=== PATIENT | female | born 1995 | race Caucasian/White ===

== ENCOUNTER 2019-08-30 17:17 | Emergency (ER) | payer OTHER, SELFPAY ==
[2019-08-30 17:26] VITALS: BP 132/79; PULSE 91; RESP 16; TEMP 36.4; O2SAT 100
--- NOTE | 2019-08-30 17:34 | ED.URI ---
HPI - URI/Sore Throat General Chief Complaint: Upper Respiratory Infection Stated Complaint: chest pain/sob Time Seen by Provider: 08/30/19 17:34 Source: patient and RN notes reviewed History of Present Illness HPI Narrative: Patient is a 24-year-old female who presents the urgent care with complaints of increase in asthma exacerbations. Patient states that she works in a long-term care facility in [place] and is noticed that she has had increased shortness of breath and asthma flares due to wearing her mask for long periods of time. Patient states that she is tested weekly for COVID and she is always had a negative result. Patient states they have had no COVID in their facility. Patient denies any fever, chills, nausea, vomiting. States that she did have a coughing fit prior to arrival but has not had distant coughing. Patient currently denies chest pain. States that she does use her albuterol inhaler which seems to help in some cases. No other acute complaints. No acute distress noted. Patient read the plan of care. Related Data Home Medications Medication Instructions Recorded Confirmed albuterol sulfate [ProAir HFA] 2 puff INHALATION QID PRN 08/30/19 08/30/19 escitalopram oxalate [Lexapro] 20 mg PO DAILY 08/30/19 08/30/19 etonogestrel [Nexplanon] 1 implant SUBDERMAL ONCE 08/30/19 08/30/19 Allergies Allergy/AdvReac Type Severity Reaction Status Date / Time No Known Allergies Allergy Verified 08/30/19 17:26 Review of Systems Review of Systems: Narrative: CONSTITUTIONAL: Denies fever, chills, or sweats. EYES: Denies visual changes, redness, or discharge. ENT: Reports of mild sore throat intermittently and postnasal drainage CARDIOVASCULAR: Denies chest pain, palpitations, or edema. RESPIRATORY: Reports a mild nonproductive cough with intermittent dyspnea and chest congestion GASTROINTESTINAL: Denies abdominal pain, nausea, vomiting, or diarrhea. GENITOURINARY: Denies dysuria or hematuria. SKIN: Denies rash or itching. MUSCULOSKELETAL: Denies back pain, joint pain, or myalgia. NEUROLOGIC: Denies headache, numbness, or weakness. All other systems reviewed are negative, except as documented in HPI. PMFSH Comments At the time of my signature, I reviewed and agree with the nursing past medical, surgical, social, and family history. There is no relevant family history pertinent to the patient complaint. Exam Narrative: Exam Narrative: GENERAL: This is a well-nourished, well-developed patient, in no apparent distress. HEAD: normocephalic, atraumatic. EYES: PERRL. Sclera clear/white. Vision is grossly intact. EARS: External ears normal, auditory canals clear and without drainage, TMs normal without perforation. Hearing grossly intact. NOSE: External nose normal with no obvious nasal discharge, nares without redness, no rhinorrhea. THROAT: Mucous membranes moist, mild erythema noted posterior oropharynx with mild postnasal drainage NECK: Neck supple CARDIOVASCULAR: Regular rate and rhythm without murmurs, gallops, or rubs. RESPIRATORY: Clear to auscultation. Breath sounds equal bilaterally. No wheezes, rales, or rhonchi. SKIN: warm, intact with no suspicious lesions or rash, good texture and turgor. NEURO: awake, alert, and oriented to person, place and time. There were no obvious focal neurologic abnormalities. EXTREMITIES: No clubbing, cyanosis, or edema. Course Vital Signs Vital signs: Vital Signs Temperature 97.6 F 08/30/19 17:26 Pulse Rate 91 08/30/19 17:26 Respiratory Rate 16 08/30/19 17:26 Blood Pressure 132/79 08/30/19 17:26 Pulse Oximetry 100 08/30/19 17:26 Temperature 97.6 F 08/30/19 17:26 Pulse Rate 91 08/30/19 17:26 Respiratory Rate 16 08/30/19 17:26 Blood Pressure 132/79 08/30/19 17:26 Pulse Oximetry 100 08/30/19 17:26 Reviewed MDM - URI/Sore Throat MDM Narrative Medical decision making narrative: Advised the patient to take breaks at work from mask wearing. Use
== END 2019-08-30 17:48 | disposition home or self-care (01) ==
PROVIDERS: Emergency Provider Nurse Practitioner Family; PCP Internal Medicine
DX: J45.909 Unspecified asthma, uncomplicated (principal); F41.9 Anxiety disorder, unspecified; F32.9 Major depressive disorder, single episode, unspecified
CPT/HCPCS: 99213; G0463

== ENCOUNTER 2019-11-21 08:06 | Outpatient (RCR) | payer OTHER, SELFPAY ==
--- NOTE | 2019-11-21 09:01 | PTOPEVAL ---
Thank you for referring Aide Iverson to [facility].? The patient is scheduled to be seen for therapy? ____x/week for ___ weeks. Please review, sign, date and return this plan of care CANDIE. I agree with and certify that the following plan of care is medically necessary. Referring Physician Date Admitting Provider: Attending Provider: Jan Payne MD Referring Provider: *PT Outpatient Evaluation Start: 11/21/19 08:05 Freq: Status: Active Protocol: Document 11/21/19 08:05 Doug (Rec: 11/21/19 08:58 [facility] [id number]) Therapy Assessment Status Assessment Status Assessment Status Evaluation Outpatient Past Medical History Past Medical History Other Source of Past Medical History see md documentation/patient intake form Respiratory History Hx Asthma Yes HEENT History Hx Tonsillectomy Yes Hx Ear Surgery Yes: bilateral myringotomy with tubes Psychosocial History Hx Anxiety Yes Hx Depression Yes Evaluation Information Problem Diagnosis acute low back sprain Onset 11/08/19 Additional Evaluation Detail OSWESTRY = 70% functionally declined Subjective Information patient reports she is having Query Text:As Reported By Patient/ severe lower back pain. she Family reports she does has pain into the R leg. she reports she also has pain into the mid back. she reports she injured her back on 11/08/19. 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 she reports no specific injury/ patient during which she felt this injury. she reports she has been taking ibuprofen and tylenol for pain. she reports she has had no imaging. she reports she is now off work. 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 she reports prior to 11/08/19, patient reports no issues. she does report having sciatic back pain about 4 years ago. Pain Assessment Timing of Pain Assessment Timing of Pain Assessment Assessment Pain Scale Pain Scale Used Numeric (1 - 10) Self Report Pain Assessmen
--- NOTE | 2019-12-19 14:43 | PTOPEVAL ---
Thank you for referring Aide Iverson to [facility].? The patient is scheduled to be seen for therapy? ____x/week for ___ weeks. Please review, sign, date and return this plan of care CANDIE. I agree with and certify that the following plan of care is medically necessary. Referring Physician Date Admitting Provider: Attending Provider: Jan Payne MD Referring Provider: *PT Outpatient Evaluation Start: 11/21/19 08:05 Freq: Status: Active Protocol: Document 12/19/19 13:00 [facility] (Rec: 12/19/19 14:17 [facility] [id number]) Therapy Assessment Status Assessment Status Assessment Status Re-evaluation Outpatient Past Medical History Past Medical History Other Source of Past Medical History see md documentation/patient intake form Respiratory History Hx Asthma Yes HEENT History Hx Tonsillectomy Yes Hx Ear Surgery Yes: bilateral myringotomy with tubes Psychosocial History Hx Anxiety Yes Hx Depression Yes Evaluation Information Problem Diagnosis acute low back sprain Pain Assessment Timing of Pain Assessment Timing of Pain Assessment Assessment Pain Scale Pain Scale Used Numeric (1 - 10) Self Report Pain Assessment Lower Back Reported Pain Level 3 Lowest Pain Intensity 3 Greatest Pain Intensity 7 Pain Score Pain Score 3: Self Report Interventions Used Interventions Used By Clinicians Activity or ADL's,Education, Electrical Stimulation, Exercise,Heat,Manual Therapy Techniques Cervical and Lumbar ROM Lumbar ROM Lumbar Flexion Active Mid Degroot,Ankle Query Text:Hands to: Lumbar Extension (0-40) 40 Query Text:Active in Degrees Lumbar Lateral Flexion Right (0-40) 40 Query Text:Active in Degrees Lumbar Lateral Flexion Left (0-40) 40 Query Text:Active in Degrees Lumbar Comments increased R lumbar pain with arom lumbar flexion Cervical and Lumbar Muscle Testing Lumbar Strength Upper Abdominal Strength 4 Good Lower Abdominal Strength 3+Fair+ Lower Extremity Muscle Strength Testing General Lower Extremity Strength Gross Lower Extremity Strength patient performs box lifts from floor to waist of 17.5lb box 10 times without increased pain patient performs lunges with increased R lower back pain with R LE forward. Hip Strength Bilateral Hip Flexion Stre
--- NOTE | 2020-01-15 09:11 | PCPTNOTE ---
patient cancelled appt today due to being exposed to abebe virus and waiting for results of test. JIMMY
== END 2020-02-04 13:35 | disposition home or self-care (01) ==
LOC: CHSPT 08:06
PROVIDERS: PCP Internal Medicine; Visit Provider Internal Medicine
DX: S33.5XXA Sprain of ligaments of lumbar spine, initial encounter (principal)
CPT/HCPCS: 97014; 97110; 97140; 97161; 97530; G0283

== ENCOUNTER 2020-09-05 10:00 | Outpatient (CLI) | payer OTHER, SELFPAY ==
--- NOTE | ~2020-09-05 | CT_ITS ---
EXAMINATION: CT abdomen pelvis w con INDICATION: Right lower quadrant pain TECHNIQUE: Computed tomographic images of the abdomen and pelvis were obtained after the administrati on of 100 cc of Omnipaque 350 intravenous contrast. The dose-length product (DLP) was 554.05 mGy-cm. Automated exposure control and iterative reconstruction technique were employed. COMPARISON: None available FINDINGS: The lung bases are clear. The heart size is normal. The liver, spleen, pancreas, gallbladde r, and adrenal glands are normal. The kidneys are unremarkable. No pathologically enlarged abdominal or pelvic lymph nodes are identified. There is no free intraperitoneal gas or evidence of bowel obstr uction. A large volume of colonic stool is present. The appendix is normal. There is mildly increased mucosal enhancement of the terminal ileum relative to the remainder of the small bowel. There is a 6 .4 x 5.9 cm cystic lesion of the left adnexa. A large volume of colonic stool is present. IMPRESSION: 1. Mildly increased mucosal enhancement of the terminal ileum which is a nonspecific finding but coul d reflect inflammation of the terminal ileum. 2. Constipation 3. 6.4 cm cystic lesion of the right adnexa, follow-up pelvic ultrasound is recommended. Reviewed, dictated and finalized at location A. IMPRESSION: 1. Mildly increased mucosal enhancement of the terminal ileum which is a nonspe cific finding but could reflect inflammation of the terminal ileum. 2. Constipation 3. 6.4 cm cystic lesion of the right adnexa, follow-up pelvic ultrasound is rec ommended.
== END 2020-09-05 10:01 | disposition home or self-care (01) ==
LOC: CHSIMG 10:01
PROVIDERS: PCP Internal Medicine; Visit Provider Nurse Practitioner Family
DX: R10.9 Unspecified abdominal pain (principal)
CPT/HCPCS: 74177; Q9967

== ENCOUNTER 2020-09-10 09:56 | Outpatient (CLI) | payer OTHER, SELFPAY ==
--- NOTE | ~2020-09-10 | US_ITS ---
EXAMINATION: US pelvic complete w TV DATE: 09/10/2020 10:20 INDICATION: Pelvic pain TECHNIQUE: Multiple transabdominal and endovaginal sonographic images of the pelvis were obtained. COMPARISON: 09/05/2020 FINDINGS: The uterus measures 7.8 x 2.5 x 3.5 cm. The endometrial complex measures 4 mm. The right ov marques measures 3.0 x 2.4 x 2.4 cm and contains a 1.8 cm cyst. The left ovary measures 6.0 x 4.9 x 5.2 c m and contains a 5.2 cm simple cyst. There is normal vascular flow in the ovaries. There is no free f luid in the pelvis. IMPRESSION: 1. No sonographic correlate for the patient's symptoms. 2. 5.2 cm cyst of the left ovary. In a reproductive age female, ultrasound follow-up in one year is r ecommended. Reviewed, dictated and finalized at location A. IMPRESSION: 1. No sonographic correlate for the patient's symptoms. 2. 5.2 cm cyst of the left ovary. In a reproductive age female, ultrasound foll ow-up in one year is recommended.
== END 2020-09-10 09:57 | disposition home or self-care (01) ==
LOC: CHSIMG 09:57
PROVIDERS: PCP Internal Medicine; Visit Provider Nurse Practitioner Family
DX: R10.9 Unspecified abdominal pain (principal)
CPT/HCPCS: 76830; 76856

== ENCOUNTER 2020-11-07 12:32 | Outpatient (CLI) | payer OTHER, SELFPAY ==
--- NOTE | ~2020-11-07 | US_ITS ---
EXAMINATION: US pelvic complete w TV DATE: 11/07/2020 12:54 INDICATION: Ovarian cysts TECHNIQUE: Multiple transabdominal and endovaginal sonographic images of the pelvis were obtained. COMPARISON: 09/10/2020 FINDINGS: The uterus measures 7.5 x 3.7 x 4.3 cm. The endometrial complex measures 4 mm. The right ov marques measures 3.1 x 2.3 x 2.0 cm. The left ovary measures 3.2 x 1.8 x 2.2 cm. No ovarian cysts are angel ntified. There is normal vascular flow in the ovaries. There is no free fluid in the pelvis. IMPRESSION: 1. No ovarian cysts identified. Reviewed, dictated and finalized at location A.
== END 2020-11-07 12:33 | disposition home or self-care (01) ==
PROVIDERS: PCP Internal Medicine; Visit Provider Obstetrics & Gynecology
DX: N83.209 Unspecified ovarian cyst, unspecified side (principal)
CPT/HCPCS: 76830; 76856

== ENCOUNTER 2023-08-03 12:25 | Outpatient (CLI) | payer BC, SELFPAY ==
--- NOTE | ~2023-08-03 | US_ITS ---
US pelvic complete Ordering provider: Yazmin Cary, [employer] History: . OVARIAN CYST, IRREGULAR BLEEDING . Comparison: None. Technique: Transabdominal and endovaginal ultrasound of the pelvis (Doppler ultrasound interrogation techniques used as needed for this exam.) FINDINGS: CERVIX: Normal. UTERUS: Measures 7.6x 4.4x 2.9 cm in length which is within normal limits and is anteverted. No myom etrial masses. ENDOMETRIUM: Normal in thickness measuring 4.1 mm. CUL DE SAC: No free fluid. RIGHT OVARY: Normal in size measuring 2.8x 3.2x 2.5 cm. Normal echotexture. Doppler vascular flow pre sent. Multiple cysts are noted with the largest measuring 1.8 x 1.8 x 1 cm. LEFT OVARY: Normal in size measuring 4.1x 4.2x 2.9 cm. Normal echotexture. Doppler vascular flow pres ent. Multiple cysts are seen with the largest measures 2.5x 2.5x 2.3 cm. ADNEXA: Normal. No mass. IMPRESSION: Bilateral ovarian cysts otherwise, normal pelvic ultrasound. Reviewed, dictated and finalized at location A.
== END 2023-08-03 12:26 | disposition home or self-care (01) ==
PROVIDERS: PCP Internal Medicine; Visit Provider Nurse Practitioner Family
DX: N92.1 Excessive and frequent menstruation with irregular cycle (principal); N83.202 Unspecified ovarian cyst, left side; N83.201 Unspecified ovarian cyst, right side
CPT/HCPCS: 76856